=== PATIENT | male | born 1965 | race Caucasian/White ===

== ENCOUNTER → 2024-04-16 14:43 | Outpatient (CLI) | payer OTHER, SELFPAY ==
--- NOTE | 2024-04-16 | DI.NM.S_ITS ---
PROCEDURE: NM EXERCISE TREADMILL NON NUC COMPARISON: None. INDICATIONS: EXERTIONAL CHEST PAIN FINDINGS: Patient exercised per the standard James protocol. Total exercise time was 10 minutes and 7 seconds. Test was terminated secondary to fatigue. Maximum heart rate obtained is 176 bpm which is 111% of max impacted heart rate. Maximum blood pressure was 180/90[place] [address]. CARI -17%. 10.9 METS. No ischemic changes noted. No arrhythmias present. No chest pains voiced. Normal heart rate and blood pressure response to exercise. IMPRESSION: 1. Negative exercise treadmill stress test for ischemia. 2. Above average exercise tolerance. Dictated by: Avery Berrios M.D. on 04/16/2024 at 16:57 Approved by: Avery Berrios M.D. on 04/16/2024 at 16:58
== END ==
PROVIDERS: PCP Student in an Organized Health Care Education/Training Program; Referring Provider Student in an Organized Health Care Education/Training Program; Visit Provider Student in an Organized Health Care Education/Training Program
DX: R07.9 Chest pain, unspecified (principal)
CPT/HCPCS: 93017